=== PATIENT | male | born 1940 | race Caucasian/White ===

== ENCOUNTER → 2016-09-12 | Outpatient (CLI) | payer OTHER | LOC: BHFA 13:15 | PROVIDERS: ATTEND Internal Medicine Cardiovascular Disease | DX: I47.2 Ventricular tachycardia (principal); I25.10 Atherosclerotic heart disease of native coronary artery without angina pectoris; I10 Essential (primary) hypertension; E11.65 Type 2 diabetes mellitus with hyperglycemia; Z95.0 Presence of cardiac pacemaker; E78.5 Hyperlipidemia, unspecified ==

== ENCOUNTER 2017-10-22 20:44 | Observation (INO) | payer OTHER ==
--- NOTE | 2017-10-22 21:12 | EDPHY ---
H & P Stated Complaint: Hives, concerned for trazodone allergic reaction Time Seen by Provider: 10/22/17 20:59 HPI/ROS: CHIEF COMPLAINT: Hives HISTORY OF PRESENT ILLNESS: Patient is a 76-year-old man whose brings him to the emergency department complaining of hives that he began experiencing yesterday. They think it is from a new sleep medication use prescribed few weeks ago trazodone. He states did not take it yesterday and took Benadryl and his symptoms seem to be improving. He noticed hives to his left leg which has been amputated above the knee from vascular ischemia despite previous stenting of his lower extremities. He also noticed it on his right flank but it is now gone but persists in being itchy. Also some itchiness to his left shoulder. His states that he felt some swelling in his lips and throat as well. No trouble breathing. He has a history of COPD and wears oxygen at baseline. Also coronary artery disease, atrial fibrillation on Coumadin and a pacemaker. He denies chest pain or shortness of breath. No fever. He has had some chills. He also complains that his urine is been cloudy recently. He does not have a catheter. He denies history of liver disease. REVIEW OF SYSTEMS: Constitutional: See HPI EENTM: denies: blurred vision, double vision, nose congestion Respiratory: denies: cough, shortness of breath Cardiac: denies: chest pain, irregular heart rate, lightheadedness, palpitations Gastrointestinal/Abdominal: denies: abdominal pain, diarrhea, nausea, vomiting, blood streaked stools Genitourinary: See HPI Musculoskeletal: See HPI Skin: See HPI Neurological: denies: headache, numbness, paresthesia, tingling, dizziness, weakness Hematologic/Lymphatic: denies: blood clots, easy bleeding, easy bruising Immunologic/allergic: denies: HIV/AIDS, transplant EXAM: GENERAL: Well-appearing, overweight, no acute distress. HEAD: Atraumatic, normocephalic. EYES: Pupils equal round and reactive to light, extraocular movements intact, sclera anicteric, conjunctiva are normal. ENT: No visible swelling or edema. TMs normal, nares patent, oropharynx clear without exudates. Moist mucous membranes. NECK: Normal range of motion, supple without lymphadenopathy or JVD. LUNGS: Breath sounds clear to auscultation bilaterally and equal. No wheezes rales or rhonchi. HEART: Regular rate and rhythm without murmurs, rubs or gallops. ABDOMEN: Soft, nontender, normoactive bowel sounds. No guarding, no rebound. No masses appreciated. BACK: No CVA tenderness, no spinal tenderness, step-offs or deformities EXTREMITIES: Left aavob-idp-cuci amputation, no visible rash Normal range of motion, no pitting or edema. No clubbing or cyanosis. NEUROLOGICAL: Cranial nerves II through XII grossly intact. Normal speech, normal gait. 5/5 strength, normal movement in all extremities, normal sensation PSYCH: Normal mood, normal affect. SKIN: Warm, dry, normal turgor, no visible rashes or lesions. No visible rash , minor excoriations. 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 - Family History Significant Family History: No pertinent family hx - Social History Smoking Status: Former smoker Alcohol Use: Sober Drug Use: None Constitutional: Initial Vital Signs Temperature (C) 36.6 C 10/22/17 20:49 Heart Rate 77 10/22/17 20:49 Respiratory Rate 20 10/22/17 20:49 Blood Pressure 114/50 L 10/22/17 20:49 O2 Sat (%) 93 10/22/17 20:49 O2 Delivery Mode Nasal Cannula O2 (L/minute) 2 Allergies/Adverse Reactions: Iodinated Contrast- Oral and IV Dye Allergy (Intermediate, Verified 10/22/17 20: 46) Vomiting Home Medications: Medication Instructions Recorded Losartan Potassium [Cozaar 50 mg 100 mg PO DAILY 02/20/12 (*)] Multivitamins [Multivitamin (*)] 1 each PO DAILY 02/20/12 [place]-3 Fatty Acids [Fish Oil 1000 1,000 mg PO DAILY 02/20/12 mg (*)] Rosuvastatin Calcium [Crestor 20mg 20 mg PO DAILY 02/20/12 (*)] Hydrocodone/APAP 5/325 [[place] 1 tab PO Q4 PRN 06/17/13 5/325 (*)] sitaGLIPtin PHOSPHATE [Januvia 100 100 mg PO DAILY 06/17/13 MG (*)] Aspirin [Aspirin 81mg (*)] 81 mg PO DAILY 01/29/15 Herbals/Supplements -Info Only 1 ea PO DAILY 01/29/15 Omeprazole 20 mg PO HS 01/29/15 diphenhydrAMINE [Benadryl 25 MG 50 mg PO HS 03/30/15 (*)] Ferrous Sulfate [Ferrous Sulf 325 325 mg PO DAILY #60 tab 03/31/15 MG (*)] Carvedilol [Coreg (*)] 6.25 mg PO BIDMEAL 09/20/15 metFORMIN HCL [Metformin HCl ER] 500 mg PO DAILY 09/20/15 Warfarin Sodium [Coumadin 5MG (*)] 5 mg PO SUMOWEFR@2100 #0 tab 09/22/15 Warfarin Sodium [Coumadin 7.5MG 7.5 mg PO TUTHSA@2100 #0 tab 09/22/15 (*)] Oxybutynin Chloride [Ditropan Xl] 10 mg PO DAILY 12/10/15 Ipratropium/Albuterol [Duoneb (*)] 3 ml IH Q4-6PRN PRN 03/05/16 Acetaminophen [Tylenol 325mg (*)] 650 mg PO Q4 PRN #0 tab 03/07/16 Medical Decision Making ED Course/Re-evaluation: The patient has a history of urticaria that is improved with cessation of the possible offending agent and Benadryl. He has also had chills however and cloudy urine. Will check his urine. Also check his LFTs considering his itching. Patient is not yet provided urine. He states that he does feel dehydrated. We will begin IV fluids. 10:30 p.m. The patient's urinalysis is positive. I will start antibiotics. Also had a lactate and blood cultures although he does not appear septic. I recommended admission because of the renal insufficiency in the setting of urinary tract infection and this rash/urticaria. That is now resolved. Patient and agree with this plan. Differential Diagnosis: Partial list of the Differential diagnosis considered include but were not limited to; allergic reaction, urinary tract infection, dehydration, renal insufficiency and although unlikely based on the history and physical exam, I also considered sepsis, hepatic pruritus, renal failure. - Data Points Laboratory Results: Laboratory Results 10/22/17 21:13 10/22/17 21:13 10/22/17 10/22/17 10/22/17 22:17 21:13 21:13 WBC 12.64 10^3/uL H 10^3/uL (3.80-9.50) RBC 4.57 10^6/uL 10^6/uL (4.40-6.38) Hgb 13.6 g/dL L g/dL (13.7-17.5) Hct 42.7 % % (40.0-51.0) MCV 93.4 fL fL (81.5-99.8) MCH 29.8 pg pg (27.9-34.1) MCHC 31.9 g/dL L g/dL (32.4-36.7) RDW 13.5 % % (11.5-15.2) Plt Count 347 10^3/uL 10^3/uL (150-400) MPV 10.3 fL fL (8.7-11.7) Neut % (Auto) 71.8 % % (39.3-74.2) Lymph % (Auto) 20.2 % % (15.0-45.0) [place] % (Auto) 7.2 % % (4.5-13.0) Eos % (Auto) 0.4 % L % (0.6-7.6) Baso % (Auto) 0.2 % L % (0.3-1.7) Nucleat RBC Rel Count 0.0 % % (0.0-0.2) Absolute Neuts (auto) 9.08 10^3/uL H 10^3/uL (1.70-6.50) Absolute Lymphs (auto) 2.55 10^3/uL 10^3/uL (1.00-3.00) Absolute Monos (auto) 0.91 10^3/uL H 10^3/uL (0.30-0.80) Absolute Eos (auto) 0.05 10^3/uL 10^3/uL (0.03-0.40) Absolute Basos (auto) 0.02 10^3/uL 10^3/uL (0.02-0.10) Absolute Nucleated RBC 0.00 10^3/uL 10^3/uL (0-0.01) Immature Gran % 0.2 % % (0.0-1.1) Immature Gran # 0.03 10^3/uL 10^3/uL (0.00-0.10) Sodium 136 mEq/L mEq/L (135-145) Potassium 5.5 mEq/L H mEq/L (3.5-5.2) Chloride 97 mEq/L mEq/L (97-110) Carbon Dioxide 29 mEq/l mEq/l (22-31) Anion Gap 10 mEq/L mEq/L (8-16) BUN 46 mg/dL H mg/dL (7-23) Creatinine 1.4 mg/dL H mg/dL (0.7-1.3) Estimated GFR 49 Glucose 159 mg/dL H mg/dL (70-100) Calcium 9.5 mg/dL mg/dL (8.5-10.4) Total Bilirubin 0.7 mg/dL mg/dL (0.1-1.4) Conjugated Bilirubin 0.5 mg/dL mg/dL (0.0-0.5) Unconjugated Bilirubin 0.2 mg/dL mg/dL (0.0-1.1) AST 21 IU/L IU/L (17-59) ALT 34 IU/L IU/L (21-72) Alkaline Phosphatase 88 IU/L IU/L (38-126) Total Protein 7.1 g/dL g/dL (6.3-8.2) Albumin 3.6 g/dL g/dL (3.5-5.0) Urine Color YELLOW Urine Appearance MODERATELY TURBID Urine pH 5.0 (5.0-7.5) Ur Specific [place] 1.016 (1.002-1.030) Urine Protein NEGATIVE (NEGATIVE) Urine Ketones NEGATIVE (NEGATIVE) Urine Blood NEGATIVE (NEGATIVE) Urine Nitrate NEGATIVE (NEGATIVE) Urine Bilirubin NEGATIVE (NEGATIVE) Urine Urobilinogen NEGATIVE EU EU (0.2-1.0) Ur Leukocyte Esterase 3+ H (NEGATIVE) Urine RBC 1-3 /hpf /hpf (0-3) Urine WBC 50-182 /hpf H /hpf (0-3) Ur Epithelial Cells TRACE /lpf /lpf (NONE-1+) Urine Bacteria 4+ /hpf H /hpf (NONE SEEN) Urine Mucus TRACE /lpf /lpf (NONE-1+) Urine Glucose NEGATIVE (NEGATIVE) Departure - Departure Disposition: [facility] Inpatient Acute Clinical Impression: Renal insufficiency, mild, Dehydration Urinary tract infection Qualifiers: Urinary tract infection type: acute cystitis Hematuria presence: without hematuria Qualified Code(s): N30.00 - Acute cystitis without hematuria Condition: Fair Referrals: NONE *PRIMARY CARE P,. [Primary Care Provider] - As per Instructions
[2017-10-22 21:31] LABS: PLATELET COUNT 347 10^3/uL (150-400)
[2017-10-22] MEDS ORDERED: LIDOCAINE 2% JELLY 20 ML (UROJECT) ONE (22:01)
[2017-10-22] MEDS ORDERED: NS 1,000 ML IV ONE (22:24)
[2017-10-22] MEDS: NS 3,100 ML IV ONE ×2 (22:45→23:07)
[2017-10-22 22:52] LABS: INR 1.31 (0.83-1.16); PROTIME(PATIENT) 16.5 SEC (12.0-15.0)
[2017-10-22] MEDS ORDERED: ONDANSETRON 4 MG/2 ML VIAL IVP PRN (22:58)
[2017-10-22] MEDS ORDERED: ACETAMINOPHEN 325 MG TAB PO PRN (22:58)
[2017-10-22] MEDS ORDERED: NS 1,000 ML IV SCH (23:00)
--- NOTE | 2017-10-22 23:38 | PDGENHP ---
History and Physical - Chief Complaint Hives, dehydration - History of Present Illness Source-patient provides majority of the history appears reliable. at bedside supplements details. Case discussed with ED provider in EMR reviewed. HPI-pleasant 76-year-old gentleman with multiple medical problems including diabetes type 2 atrial fibrillation on Coumadin status post pacer, COPD with chronic hypoxic respiratory failure on oxygen, CAD status post stenting, PVD status post left BKA, DONNA on CPAP, BPH status post TURP with urinary incontinence, HTN, hx CVA who presents emergency department with complaints of 2 days of hives improved as. Patient was started on trazodone and Mag citrate at HS at the end of August. He decided to take 3 tabs of trazodone at HS although instructed to take 1-2 p.r.n.. Patient developed rash to his lower extremities long stump and in his groin. He also reports some lip swelling and itching tightness in the back this throat. He denies any associated shortness of breath or increased cough from baseline. Patient does report he developed a little bit of a chest pain below his left chest. Was not worsened with inspiration or cough. It was nonsustained. Patient was taking Benadryl and had stopped the trazodone with improvement of his symptoms to near resolution. Given his constellation symptoms however when he developed the left chest pain patient presented to the emergency department for further evaluation. A after initial assessment was found the patient was having several days of chills and declining urine output. He has not had any flank pain. No nausea or vomiting. Positive fatigue. No myalgias. Patient with previous history of UTI and urinary incontinence status post TURP. He denies any hematuria, urgency, frequency. reports patient's urine has appeared orange. History Information - Allergies/Home Medication List Allergies/Adverse Reactions: Iodinated Contrast- Oral and IV Dye Allergy (Intermediate, Verified 10/22/17 20: 46) Vomiting Home Medications: Losartan Potassium [Cozaar 50 mg (*)] 100 mg PO DAILY 02/20/12 [Last Taken 03/04] Multivitamins [Multivitamin (*)] 1 each PO DAILY 02/20/12 [Last Taken 03/04/16] [place]-3 Fatty Acids [Fish Oil 1000 mg (*)] 1,000 mg PO DAILY 02/20/12 [Last Taken 03/04/16] Rosuvastatin Calcium [Crestor 20mg (*)] 20 mg PO DAILY 02/20/12 [Last Taken 06/07] Hydrocodone/APAP 5/325 [[place] 5/325 (*)] 1 tab PO Q4 PRN 06/17/13 [Last Taken ] sitaGLIPtin PHOSPHATE [Januvia 100 MG (*)] 100 mg PO DAILY 06/17/13 [Last Taken 03/04/16] Aspirin [Aspirin 81mg (*)] 81 mg PO DAILY 01/29/15 [Last Taken 03/04/16] Herbals/Supplements -Info Only 1 ea PO DAILY 01/29/15 [Last Taken 03/04/16] Omeprazole 20 mg PO HS 01/29/15 [Last Taken 03/04/16] diphenhydrAMINE [Benadryl 25 MG (*)] 50 mg PO HS 03/30/15 [Last Taken 03/04/16] Carvedilol [Coreg (*)] 6.25 mg PO BIDMEAL 09/20/15 [Last Taken 03/04/16] metFORMIN HCL [Metformin HCl ER] 500 mg PO DAILY 09/20/15 [Last Taken 03/04/16] Oxybutynin Chloride [Ditropan Xl] 10 mg PO DAILY 12/10/15 [Last Taken 03/04/16] Ipratropium/Albuterol [Duoneb (*)] 3 ml IH Q4-6PRN PRN 03/05/16 [Last Taken 06/07] Warfarin Sodium [Coumadin 5MG (*)] 5 mg PO TUTH@209910/23/17 [Last Taken ] Warfarin Sodium [Coumadin 7.5MG (*)] 7.5 mg PO SUMOWEFRSA@209910/23/17 [Last Taken Unknown] I have personally reviewed and updated: family history, medical history, social history, surgical history - Past Medical History atrial fibrillation (Status post pacer, on Coumadin for anticoagulation), coronary artery disease (Status post stent placement), CVA, diabetes type 2, GI bleed (History of rectal bleeding 03/12/2018), GERD, recurrent UTI Additional medical history: Macular degeneration, COPD with chronic hypoxic respiratory failure, PVD status post stenting and subsequent left BKA, DONNA on CPAP, BPH status post TURP, HTN, right foot neuropathy - Surgical History Additional surgical history: Cardiac cath with stent placement, av pacer, cholecystectomy, partial colectomy with a secondary reanastomosis, TURP, angio status post stenting and subsequent BKA on the left. - Family History Positive for: diabetes type II Additional family history: Sister-CAD and OK age 50, father-CVA, mother -multiple myeloma - Social History Smoking Status: Former smoker Tobacco Use: Cigarettes (Sixty pack-year history quit in 2010) Alcohol Use: None Drug Use: None Additional social history: Patient is and lives with his . Cor- full. Review of Systems Review of Systems: ROS: 10pt was reviewed & negative except for what was stated in HPI & below Constitutional: Reports: chills. Denies: fever EENMT: Reports: mouth swelling (Patient complaining of lip swelling improving), throat swelling (Improving). Denies: blurred vision (No acute changes in vision. Patient does have history of macular degeneration.), nose congestion, sore throat Cardiac: Reports: chest pain (Single episode nonsustained as noted per HPI), edema (Increased edema in lower extremities with onset of urticaria.). Denies: lightheadedness, palpitations Respiratory: Denies: cough, shortness of breath Gastrointestinal: Reports: no symptoms. Denies: vomitting, abdominal pain, diarrhea, nausea Genitourinary: Reports: incontinence. Denies: dysuria, frequency, hematuria Muscolosketal: Denies: back pain, joint pain, muscle pain Skin: Reports: rash (Improving). Denies: change in color Neurological: Reports: no symptoms, numbness (right lower extremity). Denies: emotional problems, headache Hematologic/Lymphatic: Denies: anemia, easy bleeding, easy bruising Physical Exam Physical Exam: Selected Entries 10/22/17 10/22/17 20:49 23:26 Blood Pressure Automatic Automatic Method Heart Rate 77 81 Respiratory 20 18 Rate O2 Sat (%) 93 96 Temperature (C) 36.6 C 36.8 C Blood Pressure 114/50 L 116/75 Mean Arterial 71 88 Pressure (MAP) O2 (L/minute) 2 3 O2 Delivery Nasal Cannula Nasal Cannula Mode Temperature Oral Oral Source Constitutional: no apparent distress, chronically ill appearing, other (NAD. Pleasant elderly adult gentleman is sitting comfortably in bed. Obese. Slightly disheveled. at bedside.) Eyes: PERRL, anicteric sclera, EOMI, No scleral injection Ears, Nose, Mouth, Throat: no oral mucosal ulcers, dry mucous membranes, No poor dentition Cardiovascular: regular rate and rhythym, no murmur, rub, or gallop, edema (1+ pitting edema right lower extremity. Left lower extremity stump), other ( Slightly distant heart sounds.) Peripheral Pulses: 0: dorsalis-pedis (L) (Amputated left lower extremity/BKA), 1 +: dorsalis-pedis (R) Respiratory: no respiratory distress, no rales or rhonchi, clear to auscultation , No reduced air movement, No expiratory wheeze, No inspiratory crackles Gastrointestinal: normoactive bowel sounds, soft, non-tender abdomen, no palpable masses, other (Obese abdomen.), No distension Genitourinary: no bladder fullness, no bladder tenderness, other (No CVA tenderness.), No valera in urethra Skin: warm, normal color, no rashes or abrasions, No rash Musculoskeletal: generalized weakness (Patient require some assistance sitting up.), No no muscle tenderness, No joint tenderness Neurologic: AAOx3, other (Grossly nonfocal exam.), No facial droop Psychiatric: not anxious, not encephalopathic, thought process linear, flat affect Lab Data & Imaging Review 10/22/17 21:13 10/22/17 21:13 WBC 12.64 10^3/uL (3.80-9.50) H 10/22/17 21:13 RBC 4.57 10^6/uL (4.40-6.38) 10/22/17 21:13 Hgb 13.6 g/dL (13.7-17.5) L 10/22/17 21:13 Hct 42.7 % (40.0-51.0) 10/22/17 21:13 MCV 93.4 fL (81.5-99.8) 10/22/17 21:13 MCH 29.8 pg (27.9-34.1) 10/22/17 21:13 MCHC 31.9 g/dL (32.4-36.7) L 10/22/17 21:13 RDW 13.5 % (11.5-15.2) 10/22/17 21:13 Plt Count 347 10^3/uL (150-400) 10/22/17 21:13 MPV 10.3 fL (8.7-11.7) 10/22/17 21:13 Neut % (Auto) 71.8 % (39.3-74.2) 10/22/17 21:13 Lymph % (Auto) 20.2 % (15.0-45.0) 10/22/17 21:13 [place] % (Auto) 7.2 % (4.5-13.0) 10/22/17 21:13 Eos % (Auto) 0.4 % (0.6-7.6) L 10/22/17 21:13 Baso % (Auto) 0.2 % (0.3-1.7) L 10/22/17 21:13 Nucleat RBC Rel Count 0.0 % (0.0-0.2) 10/22/17 21:13 Absolute Neuts (auto) 9.08 10^3/uL (1.70-6.50) H 10/22/17 21:13 Absolute Lymphs (auto) 2.55 10^3/uL (1.00-3.00) 10/22/17 21:13 Absolute Monos (auto) 0.91 10^3/uL (0.30-0.80) H 10/22/17 21:13 Absolute Eos (auto) 0.05 10^3/uL (0.03-0.40) 10/22/17 21:13 Absolute Basos (auto) 0.02 10^3/uL (0.02-0.10) 10/22/17 21:13 Absolute Nucleated RBC 0.00 10^3/uL (0-0.01) 10/22/17 21:13 Immature Gran % 0.2 % (0.0-1.1) 10/22/17 21:13 Immature Gran # 0.03 10^3/uL (0.00-0.10) 10/22/17 21:13 PT 16.5 SEC (12.0-15.0) H 10/22/17 21:13 INR 1.31 (0.83-1.16) H 10/22/17 21:13 APTT 30.7 SEC (23.0-38.0) 10/22/17 21:13 VBG Lactic Acid 1.3 mmol/L (0.7-2.1) 10/22/17 22:42 Sodium 136 mEq/L (135-145) 10/22/17 21:13 Potassium 5.5 mEq/L (3.5-5.2) H 10/22/17 21:13 Chloride 97 mEq/L (97-110) 10/22/17 21:13 Carbon Dioxide 29 mEq/l (22-31) 10/22/17 21:13 Anion Gap 10 mEq/L (8-16) 10/22/17 21:13 BUN 46 mg/dL (7-23) H 10/22/17 21:13 Creatinine 1.4 mg/dL (0.7-1.3) H 10/22/17 21:13 Estimated GFR 49 10/22/17 21:13 Glucose 159 mg/dL (70-100) H 10/22/17 21:13 Calcium 9.5 mg/dL (8.5-10.4) 10/22/17 21:13 Total Bilirubin 0.7 mg/dL (0.1-1.4) 10/22/17 21:13 Conjugated Bilirubin 0.5 mg/dL (0.0-0.5) 10/22/17 21:13 Unconjugated Bilirubin 0.2 mg/dL (0.0-1.1) 10/22/17 21:13 AST 21 IU/L (17-59) 10/22/17 21:13 ALT 34 IU/L (21-72) 10/22/17 21:13 Alkaline Phosphatase 88 IU/L (38-126) 10/22/17 21:13 Total Protein 7.1 g/dL (6.3-8.2) 10/22/17 21:13 Albumin 3.6 g/dL (3.5-5.0) 10/22/17 21:13 Urine Color YELLOW 10/22/17 22:17 Urine Appearance MODERATELY TURBID 10/22/17 22:17 Urine pH 5.0 (5.0-7.5) 10/22/17 22:17 Ur Specific [place] 1.016 (1.002-1.030) 10/22/17 22:17 Urine Protein NEGATIVE (NEGATIVE) 10/22/17 22:17 Urine Ketones NEGATIVE (NEGATIVE) 10/22/17 22:17 Urine Blood NEGATIVE (NEGATIVE) 10/22/17 22:17 Urine Nitrate NEGATIVE (NEGATIVE) 10/22/17 22:17 Urine Bilirubin NEGATIVE (NEGATIVE) 10/22/17 22:17 Urine Urobilinogen NEGATIVE EU (0.2-1.0) 10/22/17 22:17 Ur Leukocyte Esterase 3+ (NEGATIVE) H 10/22/17 22:17 Urine RBC 1-3 /hpf (0-3) 10/22/17 22:17 Urine WBC 50-182 /hpf (0-3) H 10/22/17 22:17 Ur Epithelial Cells TRACE /lpf (NONE-1+) 10/22/17 22:17 Urine Bacteria 4+ /hpf (NONE SEEN) H 10/22/17 22:17 Urine Mucus TRACE /lpf (NONE-1+) 10/22/17 22:17 Urine Glucose NEGATIVE (NEGATIVE) 10/22/17 22:17 Assessment & Plan Assessment: 76-year-old gentleman with multiple chronic medical issues who presents to ED with complaints of hives, chills, dehydration. #Urinary tract infection - patient started on Rocephin. He has a previous history of UTI 03/12/2018 that was positive for E coli resistant only to Levaquin. Patient with a leukocytosis but does otherwise not need any sepsis criteria. #Acute renal insufficiency - likely prerenal in nature secondary to patient's and noting decreased oral intake and hydration in the last several days. He will continue to receive IV fluids in the emergency department 1 L and off upstairs on the floor. Patient had 30 mL/kg bolus ordered however at this time I do not feel patient is meeting sepsis criteria warrants such aggressive IV fluid hydration given his multiple comorbidities will try to minimize risk of fluid overload.. We will avoid any nephrotoxin medications overnight. #Dehydration - IV fluid hydration as noted above. #allergic reaction - Benadryl available p.r.n. Patient without any significant facial swelling or urticaria at this time. I do not feel patient warrants any steroid at this time. chronic medical problems #Dm 2 - continue patient's Lantus including tonight's dose, Januvia, metformin tomorrow for renal function is improved. Carb controlled diet ordered. #Benign essential hypertension - patient's blood pressures at this point are acceptable. Resume patient's losartan if renal function improves tomorrow. Continue carvedilol. #COPD - continue supplemental oxygen. Nebulizer available p.r.n.. Patient without any evidence of exacerbation at this time. #Chronic hypoxic respiratory failure - supplemental oxygen #Atrial fibrillation - rate is controlled at this time patient does have a pacer in place. Continue carvedilol. Continue patient's Coumadin for chronic anticoagulation coverage. #Anticoagulation with Coumadin - subtherapeutic at this time. Pharmacy consult to assist with dosing and possibly some education. #GERD - continue patient's PPI #CAD/PVD - continue statin [place] if renal function improves. Aspirin. #DONNA on CPAP #BPH - status post now with occasional urinary incontinence. #Obesity BMI 32.3 #Macular degeneration #Neuropathy - continue Lyrica. FEN - IVF NS overnight. electrolyte replacement PPX - SCDs coumadin with subtherapeutic INR. Pharmacy consultation to assist with dosing. Cor status-full Disposition-patient admitted to observation status on the medical floor at this time. Will plan to review a.m. Labs and transitioned oral antibiotics anticipate less than 2 midnight stay.
[2017-10-23] MEDS ORDERED: D50W 25 GM/50 ML VIAL IVP PRN (00:29)
[2017-10-23] MEDS: diphenhydrAMINE 25 MG CAP PO PRN ×2 (02:09→10:50)
[2017-10-23 04:57] LABS: PLATELET COUNT 302 10^3/uL (150-400)
[2017-10-23] MEDS ORDERED: metFORMIN HCL 500 MG TAB PO SCH (09:00)
[2017-10-23] MEDS ORDERED: HYDROCODONE/APAP 5/325 TAB PO PRN (09:56)
[2017-10-23] MEDS ORDERED: IPRATROPIUM/ALBUTEROL 3 ML DEYVIAL IH PRN (09:56)
[2017-10-23] MEDS ORDERED: CARVEDILOL 6.25 MG TAB PO SCH (09:56)
[2017-10-23] MEDS ORDERED: diphenhydrAMINE 25 MG CAP PO PRN (09:56)
[2017-10-23] MEDS ORDERED: LOSARTAN POTASSIUM 50 MG TAB PO SCH (10:00)
[2017-10-23 11:09] VITALS: BP 139/57
--- NOTE | 2017-10-23 13:50 | PDIAF ---
- Diagnosis Diagnosis: uti Code Status: Full Code - Medication Management Discharge Medications: Medications to Continue on Transfer Losartan Potassium [Cozaar 50 mg (*)] 100 mg PO DAILY 02/20/12 [Last Taken 10/22] Multivitamins [Multivitamin (*)] 1 each PO DAILY 02/20/12 [Last Taken 10/22/17] [place]-3 Fatty Acids [Fish Oil 1000 mg (*)] 1,000 mg PO DAILY 02/20/12 [Last Taken 10/22/17] Rosuvastatin Calcium [Crestor 20mg (*)] 20 mg PO DAILY 02/20/12 [Last Taken 08/10] Hydrocodone/APAP 5/325 [[place] 5/325 (*)] 1 tab PO Q4H PRN 06/17/13 [Last Taken 03/04/16] sitaGLIPtin PHOSPHATE [Januvia 100 MG (*)] 100 mg PO DAILY 06/17/13 [Last Taken 10/22/17] Aspirin [Aspirin 81mg (*)] 81 mg PO DAILY 01/29/15 [Last Taken 10/22/17] Herbals/Supplements -Info Only 1 ea PO DAILY 01/29/15 [Last Taken 03/04/16] Omeprazole 20 mg PO HS 01/29/15 [Last Taken 10/21/17] diphenhydrAMINE [Benadryl 25 MG (*)] 50 mg PO BID PRN 03/30/15 [Last Taken 10/21] Ferrous Sulfate [Ferrous Sulf 325 MG (*)] 325 mg PO DAILY #60 tab 03/31/15 [ Last Taken 10/22/17] Carvedilol [Coreg (*)] 6.25 mg PO BIDMEAL 09/20/15 [Last Taken 10/22/17] Oxybutynin Chloride [Ditropan Xl] 10 mg PO DAILY 12/10/15 [Last Taken 10/22/17] Ipratropium/Albuterol [Duoneb (*)] 3 ml IH Q4H PRN 03/05/16 [Last Taken 03/04/16 ] Acetaminophen [Tylenol 325mg (*)] 650 mg PO Q4HRS PRN tab 10/23/17 [Last Taken Unknown] Insulin Glargine,Hum.rec.anlog [Basaglar Kwikpen U-100] 30 unit SQ HS 10/23/17 [ Last Taken 10/21/17] Pregabalin [Lyrica 75mg (*)] 75 mg PO HS 10/23/17 [Last Taken 10/21/17] Warfarin Sodium [Coumadin 5MG (*)] 5 mg PO TUTH@209910/23/17 [Last Taken ] Warfarin Sodium [Coumadin 7.5MG (*)] 7.5 mg PO SUMOWEFRSA@209910/23/17 [Last Taken Unknown] levOFLOXACIN [levAQUIN (*)] 750 mg PO DAILY #2 tab 10/23/17 [Last Taken Unknown] metFORMIN HCL [Glucophage 500 mg (*)] 500 mg PO DAILY 10/23/17 [Last Taken 10/22] traZODone [traZODONE 50MG (*)] 50 - 100 mg PO HS 10/23/17 [Last Taken 10/21/17] Discharge Medications: Refer to the Discharge Home Medication list for PRN reason. PICC Care - Routine: N/A - Orders Services needed: Home Care, Registered Nurse, Physical Therapy Home Care Face to Face: I certify that this patient was under my care and that I had the required [id number] encounter meeting the encounter requirements on the discharge day. My findings support the fact that the patient is homebound as defined in Home Care Face to Face Continued: CMS Chapter 7 Medicare Benefits Manual 30.1.1 , The condition of the patient is such that there exists a normal inability to leave home and consequently, leaving home would require a considerable and taxing effort. Diet Recommendation: no restrictions on diet - Follow Up Care Current Providers and Referrals: NONE *PRIMARY CARE P,. [Unknown] - As per Instructions
--- NOTE | 2017-10-23 14:00 | PDIAF ---
- Diagnosis Diagnosis: uti Code Status: Full Code - Medication Management Discharge Medications: Medications to Continue on Transfer Losartan Potassium [Cozaar 50 mg (*)] 100 mg PO DAILY 02/20/12 [Last Taken 10/22] Multivitamins [Multivitamin (*)] 1 each PO DAILY 02/20/12 [Last Taken 10/22/17] [place]-3 Fatty Acids [Fish Oil 1000 mg (*)] 1,000 mg PO DAILY 02/20/12 [Last Taken 10/22/17] Rosuvastatin Calcium [Crestor 20mg (*)] 20 mg PO DAILY 02/20/12 [Last Taken 08/10] Hydrocodone/APAP 5/325 [[place] 5/325 (*)] 1 tab PO Q4H PRN 06/17/13 [Last Taken 03/04/16] sitaGLIPtin PHOSPHATE [Januvia 100 MG (*)] 100 mg PO DAILY 06/17/13 [Last Taken 10/22/17] Aspirin [Aspirin 81mg (*)] 81 mg PO DAILY 01/29/15 [Last Taken 10/22/17] Herbals/Supplements -Info Only 1 ea PO DAILY 01/29/15 [Last Taken 03/04/16] Omeprazole 20 mg PO HS 01/29/15 [Last Taken 10/21/17] diphenhydrAMINE [Benadryl 25 MG (*)] 50 mg PO BID PRN 03/30/15 [Last Taken 10/21] Ferrous Sulfate [Ferrous Sulf 325 MG (*)] 325 mg PO DAILY #60 tab 03/31/15 [ Last Taken 10/22/17] Carvedilol [Coreg (*)] 6.25 mg PO BIDMEAL 09/20/15 [Last Taken 10/22/17] Oxybutynin Chloride [Ditropan Xl] 10 mg PO DAILY 12/10/15 [Last Taken 10/22/17] Ipratropium/Albuterol [Duoneb (*)] 3 ml IH Q4H PRN 03/05/16 [Last Taken 03/04/16 ] Acetaminophen [Tylenol 325mg (*)] 650 mg PO Q4HRS PRN tab 10/23/17 [Last Taken Unknown] Insulin Glargine,Hum.rec.anlog [Basaglar Kwikpen U-100] 30 unit SQ HS 10/23/17 [ Last Taken 10/21/17] Pregabalin [Lyrica 75mg (*)] 75 mg PO HS 10/23/17 [Last Taken 10/21/17] Warfarin Sodium [Coumadin 5MG (*)] 5 mg PO TUTH@209910/23/17 [Last Taken ] Warfarin Sodium [Coumadin 7.5MG (*)] 7.5 mg PO SUMOWEFRSA@209910/23/17 [Last Taken Unknown] levOFLOXACIN [levAQUIN (*)] 750 mg PO DAILY #2 tab 10/23/17 [Last Taken Unknown] metFORMIN HCL [Glucophage 500 mg (*)] 500 mg PO DAILY 10/23/17 [Last Taken 10/22] traZODone [traZODONE 50MG (*)] 50 - 100 mg PO HS 10/23/17 [Last Taken 10/21/17] Discharge Medications: Refer to the Discharge Home Medication list for PRN reason. PICC Care - Routine: N/A - Orders Services needed: Home Care, Registered Nurse, Physical Therapy Home Care Face to Face: I certify that this patient was under my care and that I had the required [id number] encounter meeting the encounter requirements on the discharge day. My findings support the fact that the patient is homebound as defined in Home Care Face to Face Continued: CMS Chapter 7 Medicare Benefits Manual 30.1.1 , The condition of the patient is such that there exists a normal inability to leave home and consequently, leaving home would require a considerable and taxing effort. Diet Recommendation: no restrictions on diet - Labs/Radiology BMP Date: 10/24/17 PT/INR Date: 10/24/17 - Follow Up Care Current Providers and Referrals: NONE *PRIMARY CARE P,. [Unknown] - As per Instructions
--- NOTE | 2017-10-23 14:12 | ASMTLACE ---
ALYSEE Length of stay for Answers: 1 day current admission Acuity / Level of Answers: No Care: Did the patient have an inpatient admission? Comorbidities - select Answers: Cerebrovascular disease all that apply (CVA, TIA, aneurysms, vasc ular dementia) Chronic pulmonary disease Coronary Artery Disease Diabetes (uncontrolled or controlled) Other Notes: HTN # of Emergency department Answers: 1-2 visits in the last 6 months Score: 9 Date Signed: 10/23/2017 02:11 PM Electronically Signed By:Lucille Reynolds RN
--- NOTE | 2017-10-23 15:09 | GDS ---
[f rep st] DISCHARGE SUMMARY DISCHARGE DIAGNOSES: 1. Urinary tract infection. 2. Dehydration. 3. Acute renal insufficiency. 4. Allergic reaction with rash. 5. History of diabetes mellitus type 2. 6. History of hypertension. 7. History of chronic obstructive pulmonary disease. 8. History of atrial fibrillation. 9. Anticoagulation with Coumadin. PHYSICAL EXAM: GENERAL: The patient is alert. VITAL SIGNS: Afebrile at 37.2, pulse is 79, respira tory rate 16, blood pressure is 139/57, he is saturating 91% on 3 L. I have seen and evaluated the p atient on the day of discharge. HOSPITAL COURSE: 1. The patient is a 76-year-old male who presented to the emergency room with complaints of itching. He was evaluated and diagnosed with urinary tract infection. During this hospitalization, he was t reated with Rocephin. His culture is still pending at the time of disposition. He will follow with his primary care physician. Levaquin has been ordered for him at the time of discharge to further tr eat his urinary tract infection. 2. Acute renal insufficiency. This is in the setting of antihypertensive medications as well as deh ydration. He has responded well. 3. Hyperkalemia. The patient's losartan has been held at the time of disposition and a home RN has been ordered to check his potassium level on 10/24/2017. 4. Dehydration. This has responded well to IV fluids. 5. Diabetes mellitus type 2. Continue his home medications. 6. Hypertension. This is stable. 7. COPD. He is on his regular oxygen. 8. Atrial fibrillation with anticoagulation. The patient's anticoagulation is subtherapeutic. An I NR will be evaluated on 10/24/2017. His Coumadin has been re-initiated. DISPOSITION: The patient will be discharged home with home health care and his . His is in agreement with this plan. He does appear to be at his baseline, per his . PENDING STUDIES: Include blood cultures, as well as urine culture. DISCHARGE MEDICATIONS: Please refer to EMR form. I have added Levaquin to the patient's regimen and recommend transitioning the patient's losartan to a different antihypertensive medication in the out patient setting given his recent hyperkalemia. FOLLOWUP: Followup will be with his primary care physician. /[id number]/MODL
--- NOTE | 2017-10-23 15:18 | ASMTCMCOM ---
CM Note CM Note Notes: Spoke w/SUR[employer] ASSOCIATE, pt discharging home today w/support of and will need homecare. [facility]. DC Plan: Home care/ Family [facility] (RN/PT Date Signed: 10/23/2017 02:10 PM Electronically Signed By:Lucille Reynolds RN
--- NOTE | 2017-10-23 16:19 | ASDISCHSUM ---
Discharge Information Plan Status:Home with Home Health Medically Cleared to Leave: Discharge Date:10/23/2017 02:50 PM CM D/C Disposition:Home Health Service ADT D/C Disposition:Home Health Service Projected Discharge Date:10/23/2017 11:00 AM Transportation at D/C:Family Discharge Delay Reason: Follow-Up Date:10/23/2017 11:00 AM Discharge Slot: Final Diagnosis: Placement Information Referral Type:*Home Health Care Services Referral ID:[id number] Provider Name:[facility] Address 1:[address] [address] Address 2: City:[place] Selection Factors: State:[place] Patient Contact Information Contact Name:LULSHABBIR Relationship: Address:[address] Work Phone: [facility]:[place] Alternate Phone: State/Zip Code:[place] [address] Email: Financial Information Financial Class:Medicare Primary Plan Desc:MEDICARE OUTPATIENT Primary Plan Number:[id number] Secondary Plan Desc:[employer] [place] Secondary Plan Number:[id number] Assessment Information LACE LACE Length of stay for Answers: 1 day current admission Acuity / Level of Answers: No Care: Did the patient have an inpatient admission? Comorbidities - select Answers: Cerebrovascular disease all that apply (CVA, TIA, aneurysms, vasc ular dementia) Chronic pulmonary disease Coronary Artery Disease Diabetes (uncontrolled or controlled) Other Notes: HTN # of Emergency department Answers: 1-2 visits in the last 6 months Score: 9 Date Signed: 10/23/2017 02:11 PM Electronically Signed By:Lucille Reynolds RN [facility] CM Progress Note CM Note CM Note Notes: Spoke w/[employer] AD TRAFFICKER, pt discharging home today w/support of and will need homecare. CM [facility] DC Plan: Home care/ Family HH (RN/PT Date Signed: 10/23/2017 02:10 PM Electronically Signed By:Lucille Reynolds RN Case Management Discharge Plan Note Case Management Discharge Discharge Order Complete? Answers: Yes Patient to Obtain Answers: via Family Medications Transportation Arranged Answers: Family/Friends Faxed Final Orders Answers: Yes Agency/Facility Transfer Answers: Yes Report Printed & Faxed to Receiving Agency Family Notified Answers: Yes Discharge Comments Notes: D/w D[employer] AD TRAFFICKER, final orders faxed. Mirella at Family notified. Date Signed: 10/23/2017 03:18 PM Electronically Signed By:Lucille Reynolds RN Intervention Information Intervention Type:*ANDREIA-Signed Date of Service:10/23/2017 10:24 AM Patient Type:Observation Staff Member:Alaina Hinojosa Hours: Discipline: Severity: Comment:
[2017-10-23] MEDS ORDERED: PANTOPRAZOLE SODIUM 40 MG TAB PO SCH (21:00)
[2017-10-23] MEDS ORDERED: traZODone 50 MG TAB PO SCH (21:00)
[2017-10-23] MEDS ORDERED: NON-FORMULARY NEW DRUG (Omeprazole [Omeprazole] 20 MG) PO SCH (21:00)
[2017-10-23] MEDS ORDERED: WARFARIN SODIUM 5 MG TAB PO SCH (21:00)
[2017-10-23] MEDS ORDERED: PREGABALIN 75 MG CAP PO SCH (21:00)
[2017-10-23] MEDS ORDERED: [UNRECOGNIZED DRUG - OTHER] SQ SCH (21:00)
[2017-10-23] MEDS ORDERED: INSULIN GLARGINE 100 UNITS/ML UNIT SC SCH (21:00)
[2017-10-23] MEDS ORDERED: INSULIN GLARGINE HUM REC ANLOG 30 UNIT SQ SCH (21:00)
[2017-10-24] MEDS ORDERED: OMEGA-3 FATTY ACIDS 1,000 MG CAP PO SCH (09:00)
[2017-10-24] MEDS ORDERED: MULTIVITAMINS 1 EACH TAB PO SCH (09:00)
[2017-10-24] MEDS ORDERED: ASPIRIN 81 MG CHEWABLE TAB PO SCH (09:00)
[2017-10-24] MEDS ORDERED: FERROUS SULFATE 325 MG TAB PO SCH (09:00)
[2017-10-24] MEDS ORDERED: Herbals/Supplements -Info Only PO SCH (09:00)
[2017-10-24] MEDS ORDERED: ROSUVASTATIN CALCIUM 20 MG TAB PO SCH (09:00)
[2017-10-24] MEDS ORDERED: WARFARIN SODIUM 7.5 MG TAB PO SCH (21:00)
== END 2017-10-23 14:50 | disposition home health service (06) ==
LOC: F3E 23:51
PROVIDERS: ADMIT Family Medicine; ATTEND Family Medicine
DX: N30.00 Acute cystitis without hematuria (principal); N17.9 Acute kidney failure, unspecified; E86.0 Dehydration; E87.5 Hyperkalemia; L50.0 Allergic urticaria; E11.40 Type 2 diabetes mellitus with diabetic neuropathy, unspecified; E11.29 Type 2 diabetes mellitus with other diabetic kidney complication; I10 Essential (primary) hypertension; I25.10 Atherosclerotic heart disease of native coronary artery without angina pectoris; I48.91 Unspecified atrial fibrillation; J96.11 Chronic respiratory failure with hypoxia; J44.9 Chronic obstructive pulmonary disease, unspecified; E66.9 Obesity, unspecified; Z99.81 Dependence on supplemental oxygen; Z79.01 Long term (current) use of anticoagulants; Z95.0 Presence of cardiac pacemaker; Z87.891 Personal history of nicotine dependence; Z89.612 Acquired absence of left leg above knee; Z68.32 Body mass index [BMI] 32.0-32.9, adult; Z79.84 Long term (current) use of oral hypoglycemic drugs
CPT/HCPCS: 97161; 99285; G0378; G8978; G8979; J0696; J1815

== ENCOUNTER 2017-12-29 10:32 | Inpatient (IN) | payer OTHER ==
[2017-12-29] MEDS ORDERED: VANCOMYCIN HCL/NORMAL SALINE 250 ML IV ONE (12:15)
--- NOTE | 2017-12-29 12:20 | EDPHY ---
H & P Time Seen by Provider: 12/29/17 11:49 HPI/ROS: CHIEF COMPLAINT: "I have a boil" HISTORY OF PRESENT ILLNESS: Patient is a 77-year-old male with non-insulin- dependent diabetes and chronic incontinence of urine who presents to the emergency department with a boil in his groin. He has noticed increased redness and discomfort. Yesterday of boil opened up and is draining. His states that there is a slightly firm mass. Patient denies fevers or chills. No abdominal pain. No nausea or vomiting. The patient regularly wears a diaper. REVIEW OF SYSTEMS: My complete review of systems is negative except as mentioned in the HPI. Past Medical/Surgical History: Includes COPD, peripheral vascular disease, DVT, coronary artery disease, hypertension, hyperlipidemia, BPH, non insulin-dependent diabetes Past surgical history: Includes cholecystectomy, colostomy, left lower extremity amputation, pacer Smoking Status: Former smoker Physical Exam: Vitals noted. Afebrile at 37.2 GENERAL: Well-appearing, in no acute distress, alert. HEENT: Eyes normal to inspection, normal pharynx, no signs of dehydration. NECK: No thyromegaly, no lymphadenopathy, supple. RESPIRATORY: Clear to auscultation bilaterally, no rales, rhonchi or wheezing. CVS: Regular rate and rhythm, no rubs, murmurs, or gallops. ABDOMEN: Soft, nontender, nondistended, no organomegaly. : Patient is wearing a diaper. Patient's scrotum is erythematous. There is a small open wound on the right lateral aspect of the scrotum. There is no palpable fluctuance. There is a firm mass posteriorly. BACK: Normal to inspection, no CVA tenderness. SKIN: Normal color, no rash, warm, dry. No pallor. EXTREMITIES: Mild pedal edema. Chronic stasis skin changes NEURO/PSYCH: Alert and oriented, normal mood and affect, normal motor sensory exam. Constitutional: Initial Vital Signs Temperature (C) 36.7 C 12/29/17 11:00 Heart Rate 76 12/29/17 11:00 Respiratory Rate 16 12/29/17 11:00 Blood Pressure 159/78 H 12/29/17 11:00 O2 Sat (%) 89 L 12/29/17 11:00 O2 Delivery Mode Nasal Cannula O2 (L/minute) 2 Allergies/Adverse Reactions: Iodinated Contrast- Oral and IV Dye Allergy (Intermediate, Verified 10/22/17 20: 46) Vomiting Home Medications: Medication Instructions Recorded Losartan Potassium [Cozaar 50 mg 100 mg PO DAILY 02/20/12 (*)] Multivitamins [Multivitamin (*)] 1 each PO DAILY 02/20/12 [place]-3 Fatty Acids [Fish Oil 1000 1,000 mg PO DAILY 02/20/12 mg (*)] Rosuvastatin Calcium [Crestor 20mg 20 mg PO DAILY 02/20/12 (*)] Hydrocodone/APAP 5/325 [[place] 1 tab PO Q4H PRN 06/17/13 5/325 (*)] sitaGLIPtin PHOSPHATE [Januvia 100 100 mg PO DAILY 06/17/13 MG (*)] Aspirin [Aspirin 81mg (*)] 81 mg PO DAILY 01/29/15 Herbals/Supplements -Info Only 1 ea PO DAILY 01/29/15 Omeprazole 20 mg PO HS 01/29/15 Ferrous Sulfate [Ferrous Sulf 325 325 mg PO DAILY #60 tab 03/31/15 MG (*)] Carvedilol [Coreg (*)] 6.25 mg PO BIDMEAL 09/20/15 Oxybutynin Chloride [Ditropan Xl] 10 mg PO DAILY 12/10/15 Ipratropium/Albuterol [Duoneb (*)] 3 ml IH Q4H PRN 03/05/16 Acetaminophen [Tylenol 325mg (*)] 650 mg PO Q4HRS PRN tab 10/23/17 Insulin Glargine,Hum.rec.anlog 30 unit SQ HS 10/23/17 [Basaglar Kwikpen U-100] Pregabalin [Lyrica 75mg (*)] 75 mg PO HS 10/23/17 Warfarin Sodium [Coumadin 5MG (*)] 5 mg PO TUTH@209910/23/17 Warfarin Sodium [Coumadin 7.5MG 7.5 mg PO SUMOWEFRSA@209910/23/17 (*)] metFORMIN HCL [Glucophage 500 mg 500 mg PO DAILY 10/23/17 (*)] traZODone [traZODONE 50MG (*)] 50 - 100 mg PO HS 10/23/17 Magnesium Citrate 12/29/17 Medical Decision Making ED Course/Re-evaluation: In the emergency department I discussed possible etiologies with the patient. I answered all his questions. An IV was placed. Laboratory studies and blood cultures were obtained. Patient was given Rocephin 1 g IV and vancomycin [address] scan was ordered due to the patient's wound and palpable mass to evaluate for abscess. I discussed case with the hospitalist service. They will admit the patient. Differential Diagnosis: My differential includes but is not limited to abscess, boil, skin breakdown, cellulitis, Fourier's gangreen, bacteremia, sepsis - Data Points Laboratory Results: Laboratory Results 12/29/17 12:37 12/29/17 12:37 12/29/17 12/29/17 12/29/17 12:37 12:37 12:37 WBC 10.32 10^3/uL H 10^3/uL (3.80-9.50) RBC 4.98 10^6/uL 10^6/uL (4.40-6.38) Hgb 14.4 g/dL g/dL (13.7-17.5) Hct 44.4 % % (40.0-51.0) MCV 89.2 fL fL (81.5-99.8) MCH 28.9 pg pg (27.9-34.1) MCHC 32.4 g/dL g/dL (32.4-36.7) RDW 13.5 % % (11.5-15.2) Plt Count 364 10^3/uL 10^3/uL (150-400) MPV 9.9 fL fL (8.7-11.7) Neut % (Auto) 64.9 % % (39.3-74.2) Lymph % (Auto) 22.9 % % (15.0-45.0) [place] % (Auto) 9.4 % % (4.5-13.0) Eos % (Auto) 2.1 % % (0.6-7.6) Baso % (Auto) 0.3 % % (0.3-1.7) Nucleat RBC Rel Count 0.0 % % (0.0-0.2) Absolute Neuts (auto) 6.70 10^3/uL H 10^3/uL (1.70-6.50) Absolute Lymphs (auto) 2.36 10^3/uL 10^3/uL (1.00-3.00) Absolute Monos (auto) 0.97 10^3/uL H 10^3/uL (0.30-0.80) Absolute Eos (auto) 0.22 10^3/uL 10^3/uL (0.03-0.40) Absolute Basos (auto) 0.03 10^3/uL 10^3/uL (0.02-0.10) Absolute Nucleated RBC 0.00 10^3/uL 10^3/uL (0-0.01) Immature Gran % 0.4 % % (0.0-1.1) Immature Gran # 0.04 10^3/uL 10^3/uL (0.00-0.10) VBG Lactic Acid 1.0 mmol/L mmol/L (0.7-2.1) Sodium 139 mEq/L mEq/L (135-145) Potassium 4.7 mEq/L mEq/L (3.3-5.0) Chloride 102 mEq/L mEq/L (97-110) Carbon Dioxide 29 mEq/l mEq/l (22-31) Anion Gap 8 mEq/L mEq/L (8-16) BUN 18 mg/dL mg/dL (7-23) Creatinine 0.9 mg/dL mg/dL (0.7-1.3) Estimated GFR > 60 Glucose 109 mg/dL H mg/dL (70-100) Calcium 9.5 mg/dL mg/dL (8.5-10.4) Medications Given: Discontinued Medications Diphenhydramine HCl (Benadryl Injection) 50 mg IVP EDNOW ONE Stop: 12/29/17 12:26 Last Admin: 12/29/17 12:50 Dose: 50 mg Ceftriaxone Sodium/Dextrose (Rocephin 1 Gm (Premix)) 50 mls @ 100 mls/hr IV EDNOW ONE PRN Reason: Protocol Stop: 12/29/17 12:43 Last Admin: 12/29/17 12:50 Dose: 50 mls Methylprednisolone Sodium Succinate (Solu-Medrol) 125 mg IVP EDNOW ONE Stop: 12/29/17 12:26 Last Admin: 12/29/17 12:49 Dose: 125 mg Departure - Departure Disposition: [facility] Acute Clinical Impression: Cellulitis Qualifiers: Site of cellulitis: other site Qualified Code(s): L03.818 - Cellulitis of other sites Condition: Good Referrals: Valdemar Singletary [Primary Care Provider] - As per Instructions
[2017-12-29] MEDS ORDERED: methylPREDNISolone SOD SUCC 125 MG/2 ML VIAL IVP ONE (12:25)
[2017-12-29 12:43] LABS: PLATELET COUNT 364 10^3/uL (150-400)
[2017-12-29] MEDS ORDERED: HYDROCODONE/APAP 5/325 TAB PO ONE (13:20)
[2017-12-29] MEDS ORDERED: IOPAMIDOL (ISOVUE-300) 100 ML BTL ONE (14:00)
[2017-12-29] MEDS ORDERED: IPRATROPIUM/ALBUTEROL 3 ML DEYVIAL IH PRN (15:14)
[2017-12-29] MEDS ORDERED: HYDROCODONE/APAP 5/325 TAB PO PRN (15:14)
--- NOTE | 2017-12-29 16:00 | PDGENHP ---
History and Physical History and Physical: CC: Painful lesions behind scrotum HISTORY: This patient with diabetes and multiple complications noticed 4 days ago that he had some painful swelling with severe tenderness at the base of his scrotum posteriorly on the right. There was some open wounds that his could see there in the skin. His urged him to seek medical attention but he would not agree to going to seek care until today. Is unclear what changed his mind today but he continues to have ongoing severe tenderness at the area of these ulcerations. The patient states that there has been some fluid draining from the open sores. He has not had chills sweats or other symptoms to suggest fever and otherwise feels well. 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 He also has urinary incontinence and so wears diapers but often has damp skin. He denies any prior history of urologic illness or surgeries. 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 This was originally diagnosed at this hospital but he was transferred to a [facility] for definitive management which included his AKA surgery. ROS: A comprehensive 10 system review revealed no other significant findings PAST MEDICAL HISTORY: Type 2 diabetes mellitus with multiple complications Coronary artery disease Cardiac pacemaker COPD with exacerbations Peripheral vascular disease DVT Hypertension BPH Cholecystectomy Pacemaker placement Left leg amputation as above FAMILY MEDICAL HISTORY: Coronary disease including a sister with AK at age 51 SOCIAL HISTORY: lives at home with his Electric wheelchair bound due to his AKA, is able to do transfers in and out of his electric wheelchair however independently Former smoker For minimal alcohol consumption on occasion MEDICATIONS: The patients list has been reconciled by our clinical pharmacist in the EMR. I have reviewed the list and ordered appropriate medicines. 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 There is a mild cellulitic process to the scrotum and to the skin on the inner aspect of the right thigh adjacent to the scrotum. There are 2 small ulcers draining a serous looking fluid at the fold between the inner thigh and scrotum on the right posteriorly, and there is a remarkable foul odor associated with this area. The area is indurated but I cannot feel any fluctuance Upper Extremities: normal Lower Extremities: Left leg with an AKA with a very healthy-looking stump but no other changes there; the right foot has diminished pulses but no ischemic changes and no diabetic foot lesions or other skin abnormalities at present No Bleeding or bruising Neurologic: normal speech/language, normal refrigerated national truck driver, no focal weakness IV site: looks normal LABORATORY DATA: [place] [address] with predominance of neutrophils otherwise unremarkable CBC Lactic acid is 1.0 Glucose of 109 otherwise unremarkable metabolic panel MICROBIOLOGY: 2 sets of blood cultures were drawn in the ER and her pending RADIOLOGY STUDIES: There is a CT scan of the abdomen pelvis and I reviewed the images from this study as well as the radiologist's report. There are 2 harder Seals notably larger on the right than left but these appear uncomplicated. The testes are descended. There is some thickening of the skin on the right side of the scrotum consistent with his cellulitis. There are no abscesses notable anywhere in the region. However notable on my review of the images but not mentioned in the radiology report is some significant inflammatory change in the fatty tissue of the ischiorectal fossa on the right. There is an area of edema along with some streaky areas of edema in a more septal appearance in other locations. Also notable are significant changes of arterial calcifications, a fairly full bladder, enlargement of the prostate. ASSESSMENT: # CELLULITIS OF THE SKIN ON THE POSTERIOR RIGHT UPPER SCROTUM SPREADING ACROSS TO THE INNER ASPECT OF THE UPPER MEDIAL RIGHT THIGH * ULCERS AT THE POSTERIOR UPPER SCROTUM ARE THE CAUSE OF THIS INFECTION # INFLAMMATORY CHANGES IN FAT OF THE ISCHIAL RECTAL FOSSA ADJACENT TO THIS PROCESS ON THE RIGHT * There is not currently any evidence to suggest abscess or for any is gangrene , but this inflammatory process is worrisome that he could potentially progress in that direction and will need very close monitoring, as well as administration of antibiotics to cover Gram-positive, anaerobic, and gram negatives including Pseudomonas # URINARY INCONTINENCE AND WHEELCHAIR-BOUND MAN WITH CHRONIC SKIN EXPOSURE TO URINE # DIABETES MELLITUS TYPE 2 # HYPERTENSION POTENTIALLY DUE TO STEROIDS GIVEN FOR HIS CT SCAN, BUT WITH A CHRONIC HISTORY OF HYPERTENSION # PRIOR HISTORY OF ALLERGY TO IODINATED CONTRAST, HAS SO FAR SAFELY HAD HIS CT SCAN DYE WITHOUT INCIDENT * Received Solu-Medrol and Benadryl prior to CT, expect higher sugars and blood pressures after this # CHRONIC PRESCRIPTION OF METFORMIN FOR HIS DIABETES WILL NEED TO BE HELD FOR [address] SCAN, * Next safe dose FridayDecember 31 # status post AKA of the left leg doing well with that but is wheelchair-bound # chronic coronary disease, stable at this time PLANS: * Inpatient admission as he will clearly need more than 48 hr of inpatient antibiotics and monitoring * For now I will start his antibiotics with vancomycin and cefepime * Infectious disease consultation * Wound care nurse consultation * Close monitoring of blood sugars and treat as indicated; expect a bit higher the than usual as he received 120 mg methylprednisolone in the ER * No metformin for [address] I have reviewed the patient's case in detail with Dr. Valencia Jack I have reviewed the patient's past medical records as part of this assessment, including multiple previous hospital admission records including physician notes , laboratory data
[2017-12-29] MEDS ORDERED: ONDANSETRON 4 MG/2 ML VIAL IVP PRN (16:01)
[2017-12-29] MEDS ORDERED: ACETAMINOPHEN 325 MG TAB PO PRN (16:01)
--- NOTE | 2017-12-29 17:35 | PDMN ---
Medical Necessity Medical necessity: Pt meets IP criteria per MD; est los >2 mn for eval/tx of painful scrotal lesions w/groin cellulitis & concerning inflammatory changes; requiring close monitoring, IV abx & ID/Wound Care consults; comorbid advanced age, urinary incontinence, wheelchair bound, diabetes, PVD; per H&P & order
[2017-12-29] MEDS: CARVEDILOL 6.25 MG TAB PO SCH (17:41)
[2017-12-29] MEDS: CEFEPIME HCL 1 GM in NS 50 ML IV SCH (17:41)
[2017-12-29] MEDS: WARFARIN SODIUM 7.5 MG TAB PO SCH (21:59)
[2017-12-29] MEDS: PREGABALIN 75 MG CAP PO SCH (21:59)
[2017-12-29] MEDS: traZODone 50 MG TAB PO SCH (21:59)
[2017-12-29] MEDS: PANTOPRAZOLE SODIUM 40 MG TAB PO SCH (21:59)
[2017-12-29] MEDS: INSULIN GLARGINE 100 UNITS/ML UNIT SC SCH (21:59)
[2017-12-30] MEDS: CEFEPIME HCL 1 GM in NS 50 ML IV SCH ×2 (00:50→10:55)
[2017-12-30] MEDS: VANCOMYCIN 1.25 GM in NS 250 ML IV SCH ×2 (01:49→13:11)
[2017-12-30 05:08] LABS: PLATELET COUNT 322 10^3/uL (150-400)
[2017-12-30] MEDS ORDERED: ENOXAPARIN 40 MG/0.4 ML SYR SC SCH (09:00)
--- NOTE | 2017-12-30 09:33 | ASMTCASEMG ---
Living Arrangements What is your living Answers: With Spouse arrangement? Who do you live with? Type Of Residence What kind of residence do Answers: House you live in? Discharge Plan Comments Coordination Status Comments Notes: Pt is a 77 y/o man admitted for painful lesions behind scrotum. Pt is non-ambulatory due to an AKA on the left and sits in a scooter or a chair all day. Therapies have been ordered and awaiting recommendations. Needs are TBD at this time. CM to follow. Plan: TBD Date Signed: 12/30/2017 09:32 AM Electronically Signed By:ALEJO Morales
[2017-12-30] MEDS: OMEGA-3 FATTY ACIDS 1,000 MG CAP PO SCH (10:05)
[2017-12-30] MEDS: MULTIVITAMINS 1 EACH TAB PO SCH (10:05)
[2017-12-30] MEDS: FERROUS SULFATE 325 MG TAB PO SCH (10:05)
[2017-12-30] MEDS: CARVEDILOL 6.25 MG TAB PO SCH ×2 (10:05→17:46)
[2017-12-30] MEDS: OXYBUTYNIN 5 MG EXT REL TAB PO SCH (10:06)
[2017-12-30] MEDS: LOSARTAN POTASSIUM 50 MG TAB PO SCH (10:06)
[2017-12-30] MEDS: ASPIRIN 81 MG CHEWABLE TAB PO SCH (10:06)
[2017-12-30] MEDS: ROSUVASTATIN CALCIUM 20 MG TAB PO SCH (10:06)
--- NOTE | 2017-12-30 10:39 | GCON ---
[f rep st] CONSULTATION INFECTIOUS DISEASE CONSULTATION. DATE OF CONSULTATION: 12/30/2017 REFERRING PHYSICIAN: Eliceo Joshua MD REASON FOR CONSULTATION: Cellulitis of the right scrotum. HISTORY OF PRESENT ILLNESS: A 77-year-old male with multiple medical problems, including type 2 diab etes and peripheral vascular disease with left BKA to the point the patient is mostly wheelchair depe ndent, who developed right-sided scrotal pain on December 26, 2017 that was progressive. It felt like a b oil. Initially it was purple, then became red and developed new satellite lesion. He [facility] to [facility], who referred him to the emergency room. The patient reports no associated fever s and chills. He denies any trauma to the area although, he queries that whether there could be inju ry during periods in which the area is clean. He denies any changes in his energy or glucose control during this illness. The patient was admitted overnight and feels significantly better today. No p ast history of MRSA and last antibiotics were given for a dental procedure for several days about a m onth ago, which was amoxicillin. REVIEW OF SYSTEMS: A complete 10-point review of systems was performed and is negative except as men tioned in the HPI. PAST MEDICAL AND SURGICAL HISTORY: Type 2 diabetes, coronary artery disease with pacemaker in place, COPD, peripheral vascular disease, DVT, hypertension, BPH, cholecystectomy, and left BKA. FAMILY HISTORY: Positive for coronary artery disease with a sister with an MO at age 51. SOCIAL HISTORY: He lives with his of 32 years at home. He has an electric wheelchair and does transfers. He is a former smoker. Minimal alcohol. He was born at [facility] and i s a [place] mechoopda and previously ran [employer]. MEDICATIONS: The patient on admission was started on cefepime 1 g IV Q 8 and was given a dose of cef triaxone in the emergency room. He was also started on vancomycin 1.25 g IV Q 8. The patient's weight is 95 kg with a creatinine of 0.9. ALLERGIES: No antibiotic allergies. He does carry allergies to oral and IV contrast. PHYSICAL EXAM: VITAL SIGNS: T-max 37.2, T current 36.7, BP 140/81, HR 77, RR 16, saturation 97% on 3 L. GENERAL: This is a very pleasant male with fluent speech. No acute distress. HEENT: The pat isabella has had extensive dental work and has almost complete replacement of his teeth with implants. N o obvious gum swelling. Moist mucous membranes. NECK: Supple. No lymphadenopathy. CARDIOVASCULAR : Regular rate. No murmur. CHEST: Clear to auscultation other than some decreased breath sounds i n the left greater than right base. ABDOMEN: Soft, nontender. : His phallus is encompassed by h is scrotum. He has bilateral hydroceles, right greater than left. Very posterior in the perineal ar ea, the patient has 2 pinpoint open holes that are draining a small amount of serosanguineous fluid w ithout fluctuance. Minimal cellulitis remains. Minimal tenderness. The patient reports significant improvement in tenderness. EXTREMITIES: Left AKA. Peripheral IV site C/C/I. LABORATORY: Admission white count 10.2, today 9.6; hematocrit, 41; platelets of 322. Creatinine 0.[address] scan was personally reviewed by me, which showed bilateral hydroceles, right greater than left, mild scrotal thickening, right greater than left. No abscess. ASSESSMENT AND PLAN: A 77-year-old male with multiple medical problems, including type 2 diabetes, c oronary artery disease, peripheral vascular disease, as well as benign prostatic hypertrophy, who ginger nds like he developed a furuncle in the posterior perineum that appears to now have ruptured with sig nificant clinical improvement. Blood cultures from 12/29/2017 are no growth to date. Patient has no history of MRSA, but has had a longstanding history of past antibiotic exposure due to multiple medi dillan problems. Although in the perineal area, I think furuncle formation is most consistent with Stap hylococcus aureus. Cannot completely exclude methicillin-resistant Staphylococcus aureus. Would dis continue cefepime and continue vancomycin with plans to discharge tomorrow on a short course of Kefle x and doxycycline due to unknown etiology of the organism. We will repeat a creatinine in the a.m. a s well as INR as patient has been started on antibiotics and could expect some disturbances in his an ticoagulation. Thank you for this consultation. We will evaluate the patient in the a.m. for possible discharge [facility] [place]. /[id number]/MODL
[2017-12-30 12:38] LABS: INR 1.78 (0.83-1.16); PROTIME(PATIENT) 20.8 SEC (12.0-15.0)
--- NOTE | 2017-12-30 13:10 | HOSPPROG ---
Hospitalist Progress Note Assessment/Plan: 77y male with c/o scrotal pain. First encounter, chart reviewed. D/W Dr Forbes. # Cellulitis of the posterior right upper scrotum -cont abx therapy -reviewed with Dr Forbes -no signs of abscess # Urinary incontinence -at baseline -wheelchair bound # DM2 -home meds # HTN -stable # Hx of iodine allergy -Received Solu-Medrol and Benadryl prior to CT, -expect higher sugars and blood pressures after -stable no signs of complication -metformin on hold, Next safe dose FridayDecember 31 # status post AKA of the left leg -doing well with that but is wheelchair-bound # chronic coronary disease, -stable at this time #Dispo -in am Subjective: Up in wheelchair. Feeling well. Eager to go home. Objective: Vital Signs Temp Pulse Resp BP Pulse Ox 36.7 C 77 18 140/81 H 97 12/30/17 08:00 12/30/17 08:00 12/30/17 08:00 12/30/17 08:00 12/30/17 08:00 Laboratory Results 12/30/17 04:35 12/29/17 12/30/17 12/31/17 05:59 05:59 05:59 Intake Total 855 Output Total 825 200 Balance 30 -200 PT 20.8 SEC (12.0-15.0) H 12/30/17 12:20 INR 1.78 (0.83-1.16) H 12/30/17 12:20 - Physical Exam Constitutional: appears nourished, not in pain, chronically ill appearing Eyes: PERRL, anicteric sclera, EOMI Ears, Nose, Mouth, Throat: moist mucous membranes, hearing normal, ears appear normal Cardiovascular: No JVD, No tachycardia, No edema Respiratory: no respiratory distress, no rales or rhonchi, reduced air movement Gastrointestinal: normoactive bowel sounds, No tenderness, No ascites Skin: warm, abrasion, erythema Musculoskeletal: normal joint ROM, no joint effusions, generalized weakness Neurologic: AAOx3 Psychiatric: interacting appropriately, not anxious, not encephalopathic, thought process linear ICD10 Worksheet Patient Problems: Problems Problem Status Onset Syncope Acute Atrial flutter Acute Diabetes mellitus Acute COPD (chronic obstructive pulmonary disease) Acute Coronary artery disease Acute S/P TURP (status post transurethral resection of prostate) Acute GI bleeding Acute Renal insufficiency, mild Acute Dehydration Acute Urinary tract infection Acute Cellulitis Acute
[2017-12-30] MEDS: PANTOPRAZOLE SODIUM 40 MG TAB PO SCH (20:11)
[2017-12-30] MEDS: WARFARIN SODIUM 7.5 MG TAB PO SCH (20:11)
[2017-12-30] MEDS: PREGABALIN 75 MG CAP PO SCH (20:11)
[2017-12-30] MEDS: traZODone 50 MG TAB PO SCH (21:52)
[2017-12-30] MEDS: INSULIN GLARGINE 100 UNITS/ML UNIT SC SCH (21:52)
[2017-12-31] MEDS: VANCOMYCIN 1.25 GM in NS 250 ML IV SCH (02:10)
[2017-12-31 05:32] LABS: INR 1.8 (0.83-1.16)
[2017-12-31] MEDS: MULTIVITAMINS 1 EACH TAB PO SCH (08:12)
[2017-12-31] MEDS: OXYBUTYNIN 5 MG EXT REL TAB PO SCH (08:12)
[2017-12-31] MEDS: ROSUVASTATIN CALCIUM 20 MG TAB PO SCH (08:13)
[2017-12-31] MEDS: CARVEDILOL 6.25 MG TAB PO SCH (08:13)
[2017-12-31] MEDS: ASPIRIN 81 MG CHEWABLE TAB PO SCH (08:13)
[2017-12-31] MEDS: LOSARTAN POTASSIUM 50 MG TAB PO SCH (08:13)
[2017-12-31] MEDS: OMEGA-3 FATTY ACIDS 1,000 MG CAP PO SCH (08:13)
[2017-12-31] MEDS: FERROUS SULFATE 325 MG TAB PO SCH (08:14)
--- NOTE | 2017-12-31 10:32 | HOSPPROG ---
Hospitalist Progress Note Assessment/Plan: 77y male with c/o scrotal pain. First encounter, chart reviewed. D/W Dr Forbes. # Cellulitis of the posterior right upper scrotum -dc home on doxycycline #hypoxemia -patient said he's on oxygen chronically at home # Urinary incontinence -at baseline # DM2 -home meds # HTN -stable # Hx of iodine allergy -Received Solu-Medrol and Benadryl prior to CT, -expect higher sugars and blood pressures after -stable no signs of complication -metformin on hold, Next safe dose FridayDecember 31 # status post AKA of the left leg -doing well with that but is wheelchair-bound # chronic coronary disease, -stable #DC home, patient is dressed and ready to go. Recommendation is doxycycline x 5 days. Subjective: Misti is feeling well, has no complaints. Objective: Vital Signs Temp Pulse Resp BP Pulse Ox 36.7 C 74 16 138/71 H 94 12/31/17 07:26 12/31/17 07:26 12/31/17 07:26 12/31/17 07:26 12/31/17 07:26 Laboratory Results 12/30/17 04:35 12/31/17 04:26 12/30/17 12/31/17 01/01/18 05:59 05:59 05:59 Intake Total 855 720 Output Total 825 1595 Balance 30 -875 PT 21.0 SEC (12.0-15.0) H 12/31/17 04:26 INR 1.80 (0.83-1.16) H 12/31/17 04:26 - Physical Exam Constitutional: appears nourished, not in pain, chronically ill appearing, obese Eyes: PERRL Ears, Nose, Mouth, Throat: hearing normal Respiratory: no respiratory distress Genitourinary: other (evalauted testicle area, no purulence or warmth, some drainage that is yellowisht from the right testes) Skin: warm Musculoskeletal: generalized weakness (uses a wheelchair at baseline) Neurologic: AAOx3 Psychiatric: interacting appropriately ICD10 Worksheet Patient Problems: Problems Problem Status Onset Cellulitis Acute Atrial flutter Acute COPD (chronic obstructive pulmonary disease) Acute Coronary artery disease Acute Dehydration Acute Diabetes mellitus Acute GI bleeding Acute Renal insufficiency, mild Acute S/P TURP (status post transurethral resection of prostate) Acute Syncope Acute Urinary tract infection Acute
--- NOTE | 2017-12-31 10:42 | ASMTDCNOTE ---
Case Management Discharge Discharge Order Complete? Answers: Yes Patient to Obtain Answers: Independently Medications Transportation Arranged Answers: Family/Friends Discharge Comments Notes: Patient discharged home with with no Case Management needs. Date Signed: 12/31/2017 10:41 AM Electronically Signed By:Maggie Dias RN
[2017-12-31 11:36] VITALS: BP 135/66
--- NOTE | 2017-12-31 15:25 | GDS ---
[f rep st] DISCHARGE SUMMARY DISCHARGE DIAGNOSES: 1. Cellulitis of the posterior right upper scrotum area. 2. Hypoxemia. 3. Urinary incontinence. 4. Diabetes type 2. 5. Hypertension. 6. History of iodine allergy. 7. Status post [id number] amputation on the left leg on a previous hospital admission. 8. Chronic coronary artery disease. CONSULTATION: Dr. Aleksandra Forbes. HISTORY OF PRESENT ILLNESS: Briefly Mr. Riggs is a 77-year-old gentleman with multiple medical p roblems including type 2 diabetes and peripheral vascular disease with left BKA. He is overall wheel chair dependent. He developed some right scrotal pain on December 26 that progressed. Initially it was a boil and then became more purple and red with the lesion. He went to urgent care who referred him t o the ER. He had no associated fever and chills. He was seen and evaluated by the Infectious Diseas e team. He was on vancomycin. He will be discharged home on doxycycline. He feels markedly better. HOSPITAL COURSE: 1. Cellulitis of posterior right upper scrotum, markedly improved. He had some minimal drainage tod ay. He will be discharged home on doxycycline. 2. Hypoxemia. He said he is chronically on oxygen. He is at his baseline. 3. Urinary incontinence, ongoing. 4. Diabetes. Home medications have been resumed. Recommended that he will hold his metformin until tomorrow because he had dye. 5. Hypertension, stable. 6. History of iodine allergy. He received Solu-Medrol and Benadryl prior to the CT. 7. Status post above knee amputation of the left leg. He has a prosthesis, but he prefers not to us e it because it is uncomfortable. 8. Coronary artery disease, stable. DISCHARGE CONDITION: Stable blood. Blood pressure is 135/66. Heart rate is 75. Respiratory rate i s 16. O2 sats on 3 L are 96%. Temperature is 36.6 Celsius. MEDICATIONS AT DISCHARGE: Please see the EMR. DISCHARGE INSTRUCTIONS: 1. Return to the ER if he develops any further swelling, fevers or chills. 2. To start his metformin tomorrow. 3. To take the doxycycline as prescribed. /[id number]/MODL
== END 2017-12-31 12:00 | disposition home or self-care (01) | DRG 728 ==
LOC: F3E 14:24 → OBSVTOIN 14:32
PROVIDERS: ADMIT Internal Medicine; ATTEND Internal Medicine
DX: N49.2 Inflammatory disorders of scrotum (principal); L02.224 Furuncle of groin; N40.1 Benign prostatic hyperplasia with lower urinary tract symptoms; E11.51 Type 2 diabetes mellitus with diabetic peripheral angiopathy without gangrene; N39.498 Other specified urinary incontinence; J44.9 Chronic obstructive pulmonary disease, unspecified; R09.02 Hypoxemia; I25.10 Atherosclerotic heart disease of native coronary artery without angina pectoris; I10 Essential (primary) hypertension; Z87.891 Personal history of nicotine dependence; Z86.718 Personal history of other venous thrombosis and embolism; Z95.0 Presence of cardiac pacemaker; Z99.81 Dependence on supplemental oxygen; Z99.3 Dependence on wheelchair; Z89.612 Acquired absence of left leg above knee
CPT/HCPCS: 96365; J0692; J0696; J1200; J1650; J1815; J2930; J3370; Q9967

== ENCOUNTER → 2018-04-14 | Outpatient (CLI) | payer OTHER | LOC: BHFA 11:15 | PROVIDERS: ATTEND Physician Assistant | DX: I48.91 Unspecified atrial fibrillation (principal); I47.2 Ventricular tachycardia; I25.10 Atherosclerotic heart disease of native coronary artery without angina pectoris; I10 Essential (primary) hypertension; K76.89 Other specified diseases of liver; I11.9 Hypertensive heart disease without heart failure; Z95.0 Presence of cardiac pacemaker; E78.5 Hyperlipidemia, unspecified ==

== ENCOUNTER → 2018-08-24 | Outpatient (CLI) | payer OTHER | LOC: FIMAGING 16:30 | PROVIDERS: ATTEND Internal Medicine Pulmonary Disease | DX: J44.0 Chronic obstructive pulmonary disease with (acute) lower respiratory infection (principal); J96.11 Chronic respiratory failure with hypoxia; T17.908A Unspecified foreign body in respiratory tract, part unspecified causing other injury, initial encounter; Z87.891 Personal history of nicotine dependence ==